=== PATIENT | female | born 1960 | race Caucasian/White ===

== ENCOUNTER 2023-12-06 13:02 | Outpatient (REF) | payer OTHER, SELFPAY ==
[2023-12-06 15:57] LABS: Bacterial Vaginosis PCR POSITIVE (Negative); Candida Group PCR DETECTED (Not Detect); Candida glab krusei PCR NOT DETECTED (Not Detect); Trichomonas vaginalis PCR NOT DETECTED (Not Detect)
[2023-12-06 16:30] LABS: CT PCR NOT DETECTED (Not Detect.); NG PCR NOT DETECTED (Not Detect.)
== END 2023-12-06 13:03 | disposition home or self-care (01) ==
LOC: HO.CHCLNP 13:02
PROVIDERS: Visit Provider Pediatrics
DX: Z01.419 Encounter for gynecological examination (general) (routine) without abnormal findings (principal)
CPT/HCPCS: 0352U; 0353U; 88142

== ENCOUNTER 2023-12-10 08:09 | Outpatient (REF) | payer OTHER, SELFPAY ==
[2023-12-10 11:48] LABS: MANUAL DIFF FLAG NO
[2023-12-10 11:53] LABS: Basophils Absolute Auto 0.1 X10*3/uL (0.0-0.2); Basophils Percent Auto 0.9 % (0-2); Eosinophils Absolute Auto 0.2 X10*3/uL (0.0-0.4); Eosinophils Percent Auto 1.8 % (0-4); Hematocrit 44.2 % (37.0-47.0); Hemoglobin 14.3 g/dl (12.0-16.0); Imm Gran Abs Auto 0.04 X10*3/uL (0.00-0.03); Imm Gran Pct Auto 0.5 % (0.0-0.4); Lymphocytes Percent Auto 34.1 % (20-40); Mean Corpuscular HGB Conc 32.4 g/dl (31.0-35.0); Mean Corpuscular Hemoglobin 29.1 pg (27.0-33.0); Mean Corpuscular Volume 89.8 fL (80.0-98.0); Mean Platelet Volume 12.2 fL (9.4-12.3); Monocytes Absolute Auto 0.6 X10*3/uL (0.1-1.2); Monocytes Percent Auto 6.2 % (2-11); Neutrophils Percent Auto 56.5 % (45-73); Platelet Count 347 X10*3/uL (160-400); Red Blood Count 4.92 X10*6/uL (4.20-5.50); Red Cell Distribution Width 14.2 % (11.0-16.0); White Blood Count 8.8 X10*3/uL (4.8-10.8)
[2023-12-10 12:02] LABS: Estimated Average Glucose 105 mg/dL; Hemoglobin A1c % 5.3 % (<6.0)
[2023-12-10 12:35] LABS: Alanine Aminotransferase 13 U/L (0-31); Albumin Level 4.4 g/dL (3.5-5.0); Alkaline Phosphatase 112 U/L (39-117); Anion Gap 14 (12-20); Aspartate Amino Transferase 21 U/L (5-31); Bilirubin Total 1.2 mg/dL (0.0-1.0); Blood Urea Nitrogen 15 mg/dL (9-16); Calcium 10.1 mg/dL (8.4-10.2); Carbon Dioxide 29 mmol/L (22-29); Chloride 101 mmol/L (96-108); Cholesterol 250 mg/dL (<200); Estimated Glomerular Filt Rate > 60; Glucose Random 91 mg/dL (60-115); HDL Cholesterol 81 mg/dL (>40); LDL Cholesterol Calculated 155 mg/dL (<100); Potassium 3.9 mmol/L (3.3-5.1); Sodium 140 mmol/L (135-145); Total Protein 8.1 g/dL (6.5-8.0); Triglycerides 73 mg/dL (<150)
[2023-12-10 12:46] LABS: Appearance Urine Clear; Color Urine Dark Yellow; Glucose Urine UA Negative (Negative); Leukocyte Esterase Urine Small (1+) (Negative); Nitrite Urine Negative (Negative); Specific Gravity - Urine 1.025 (1.005-1.025); UMIC TRIGGER UACC YES; Urine Blood Small (1+) (Negative); Urine Ketones Negative (Negative); Urine Protein Negative (Neg-Trace)
[2023-12-10 12:51] LABS: TSH reflex Free T4 1.96 uIU/mL (0.32-4.0); Vitamin D 25-OH Total 29.7 ng/mL (>30)
[2023-12-10 13:06] LABS: Bacteria Urine Trace (None Seen); UACC Culture Trigger YES; WBC Urine 0-5 /HPF (0-5)
[2023-12-10 14:02] LABS: Creatinine Urine 210.43 mg/dL; Microalbum/Creatinine Ratio Ur 9.5 ug/mg cr (<30)
== END 2023-12-10 08:10 | disposition home or self-care (01) ==
LOC: HO.CHCLDS 08:09
PROVIDERS: Visit Provider Pediatrics
DX: Z00.00 Encounter for general adult medical examination without abnormal findings (principal); E55.9 Vitamin D deficiency, unspecified; M85.80 Other specified disorders of bone density and structure, unspecified site; E78.2 Mixed hyperlipidemia; J30.2 Other seasonal allergic rhinitis; R03.0 Elevated blood-pressure reading, without diagnosis of hypertension
CPT/HCPCS: 36415; 80053; 80061; 81001; 82043; 82306; 82570; 83036; 84443; 85025; 87086

== ENCOUNTER 2025-03-12 08:24 | Outpatient (REF) | payer SELFPAY ==
--- OUTSIDE RECORDS SUMMARY | 2025-03-11 10:30 | XMS_ITS | Encounter Summary ---
Author Organization [employer] Address [address] [place] [address] 7 [place] [address] Care Team Providers Care Car Record Clerk Name Role Phone Nighat Bacon MD Primary Care Provider [phone] Reason for Referral * Imaging (Routine) - Closed Specialty Diagnoses / Procedures Referred By Althea mendez Referred To Contact Radiology Diagnoses Breast cancer screening by mammogram Procedures BI Mammogram Screening Tomosynthesis Bilateral Nighat Bacon MD [address] [place] [address] Phone: tel: fax: [address] Phone: tel: fax: Referral ID Status Reason Start Date Expiration Date Visits Re quested Visits Authorized [id number] Closed 03/11/2025 03/11/2026 1 1 * Consultation (Urgent) - Closed Specialty Diagnoses / Procedures Referred By Althea mendez Referred To Contact Ophthalmology Diagnoses Cataract of both eyes, unspecified cataract type Nighat Bacon MD [address] [place] [address] Phone: tel: fax: Referral ID Status Reason Start Date Expiration Date V isits Requested Visits Authorized [id number] Closed Specialty Services Required 03/11/2025 03/11/2026 1 1 Encounter Details Date Type Department Care Team (Late st Contact Info) Description 03/11/2025 10:30 AM EDT Office Visit [facility] MED & PEDS [address] [place] [address] Nighat Bacon MD [address] [place] [address] Cataract of both eyes, unspecified cataract type (Primary Dx); Breast cancer screening by mammogram; Vitamin D deficiency; Mixed hyperlipidemia; Dietary counseling; Exercise counseling; Preop examination Social History Tobacco Use Types Packs/Day Years Used Date Smoking Tobacco: Never Passive Smoke Exposure: Never Smokeless Tobacco: Never Alcohol Use Standard Drinks/Week Comments Never 0 (1 standard drink = 0.6 oz pur e alcohol) Depression Answer Date Recorded Patient Health Questionnaire-9 Score 0 03/11/2025 Patient Health Questionnaire-9 Score 0 03/11/2025 Last PHQ-9: Questionnaire Data Not on file 0 03/11/2025 Housing Stability Answer Date Recorded What is your housing situation today? I have jesika torrez 03/11/[address] you li ve. Do you have problems with any of the following? None of the above 03/11/2025 Food Insecurity Answer Date Recorded Within the past 12 months, y ou worried that your food would run out before you got money to buy more: Never True 03/11/2025 Within the past 12 months,th e food you bought just didn't last and you didn't have enough money to get more: Never True 10/2024 Transportation Answer Date Recorded In the past 12 months, has l ack of transportation kept you from medical appts, meetings, work or from getting things needed for daily living? No 03/11/2025 Utilities Answer Date Recorded In the past 12 months, has t he electric, gas, oil or water company threatened to shut off services in your home? No 03/11/2025 Depression Answer Date Recorded Patient Health Questionnaire-2 Score 0 03/11/2025 Internet Access Answer Date Recorded Internet Access Q1 Yes 03/11/2025 Internet Access Q2 Not on file 03/11/2025 Comments No Sex and Gender Information Value Date Recorded Sex Assigned at Female 05/07/2022 10:20 AM EDT Legal Sex Female 10:20 AM EDT Gender Identity Female 05/07/2022 10:20 AM EDT Sexual Orientation Straight 05/07/2022 10 :20 AM EDT documented as of this encounter Last Filed Vital Signs Vital Sign Reading Time Taken Comments Blood Pressure 138/88 03/11/2025 10:26 AM EDT Pulse 68 03/11/2025 10:26 AM EDT Temperature 36.3 C (97.4 F) 03/11/2025 10:26 AM EDT Respiratory Rate 16 03/11/2025 10:26 AM EDT Oxygen Saturation - - Inhaled Oxygen Concentration - - Weight 92.1 kg (203 lb) 03/11/2025 10:26 AM EDT Height 154.9 cm (5' 1 ) 03/11/2025 10:26 AM EDT Body Mass Index 38.36 03/11/2025 10:26 AM EDT documented in this encounter Functional Status * Over the past 2 weeks, how often have you been bothered by any of the following problems? Question Answer Date of Assessment Author Patient Health Questionnaire-2 Score 0 10/2024 10:36 AM Elina Lassiter MA * Little interest or pleasure in doing things Answer Date of Assessment Author Not at all 03/11/2025 10:36 AM James Lassiter MA * Feeling down, depressed, or hopeless Answer Date of Assessment Author Not at all 03/11/2025 10:36 AM James Lassiter MA * Trouble falling or staying asleep, or sleeping too much Answer Date of Assessment Author Not at all 03/11/2025 10:36 AM James Lassiter MA * Feeling tired or having little energy Answer Date of Assessment Author Not at all 03/11/2025 10:36 AM James Lassiter MA * Poor appetite or overeating Answer Date of Assessment Author Not at all 03/11/2025 10:36 AM James Lassiter MA * Feeling bad about yourself - or that you are a failure or have let yourself or your family down Answer Date of Assessment Author Not at all 03/11/2025 10:36 AM James Lassiter MA * Trouble concentrating on things, such as reading the newspaper or watching television Answer Date of Assessment Author Not at all 03/11/2025 10:36 AM James Lassiter MA * Moving or speaking so slowly that other people could have noticed? Or the opposite - being so fidgety or restless that you have been moving around a lot more than usual. Answer Date of Assessment Author Not at all 03/11/2025 10:36 AM James Lassiter MA * Thoughts that you would be better off or hurting yourself in some way Answer Date of Assessment Author Not at all 03/11/2025 10:36 AM James Lassiter MA * Patient Health Questionnaire-9 Score Answer Date of Assessment Author 0 03/11/2025 10:36 AM James Lassiter MA documented as of this encounter Progress Notes * Nighat Bacon MD - 03/11/2025 10:30 AM EDT Subjective Patient ID: Naomi Rebollar is a 64 y.o. female who presents for preop eval x cataract surgery. Naomi is a 64 y/o female patient of [facility] here for preop exam for cataract surgery. Patient is having a lot of issues with her vision lately and cannot drive past 6 PM which is affecting her her ability to do errands and work sometimes. Patient had a lot of issues with her medical insurance but apparently these have all been fixed. She has no significant past medical history except for overweight and mild hypertension. Takes hydrochlorothiazide for hypertension. No new complaints today. Another appointment scheduled with me for PE. Review of Systems Constitutional: Negative for activity change, chills, fever and unexpected weight change. Eyes: Positive for visual disturbance. Negative for pain and itching. Respiratory: Negative for cough, shortness of breath and wheezing. Cardiovascular: Negative for chest pain, palpitations and leg swelling. Gastrointestinal: Negative for abdominal pain and blood in stool. Endocrine: Negative for polydipsia and polyuria. Genitourinary: Negative for decreased urine volume, difficulty urinating, dysuria and hematuria. Musculoskeletal: Negative for arthralgias and gait problem. Skin: Negative for color change and rash. Neurological: Negative for dizziness and headaches. Hematological: Negative for adenopathy. Psychiatric/Behavioral: Negative for dysphoric mood, hallucinations, sleep disturbance and suicidalideas. The patient is not nervous/anxious. Objective BP 138/88 (BP Location: Left arm, Patient Position: Sitting, BP Cuff Size: Adult) Pulse68 Temp 97.4 ??F (36.3 ??C) (Oral) Resp 16 Ht 5' 1 (1.549 m) Wt 203 lb (92.1 kg) LMP 07/08/2017 (Approximate) BMI 38.36 kg/m?? Physical Exam Vitals reviewed. Constitutional: General: She is not in acute distress. Appearance: Normal appearance. She is not ill-appearing. HENT: Head: Normocephalic. Right Ear: Tympanic membrane and ear canal normal. Left Ear: Tympanic membrane and ear canal normal. Nose: Nose normal. Mouth/Throat: Mouth: Mucous membranes are moist. Pharynx: No oropharyngeal exudate or posterior oropharyngeal erythema. Eyes: Extraocular Movements: Extraocular movements intact. Conjunctiva/sclera: Conjunctivae normal. Pupils: Pupils are equal, round, and reactive to light. Cardiovascular: Rate and Rhythm: Normal rate and regular rhythm. Pulses: Normal pulses. Heart sounds: Normal heart sounds. Pulmonary: Effort: Pulmonary effort is normal. No respiratory distress. Breath sounds: Normal breath sounds. No wheezing. Abdominal: General: There is distension. Palpations: Abdomen is soft. Tenderness: There is no abdominal tenderness. Musculoskeletal: General: Normal range of motion. Cervical back: Normal range of motion. Skin: General: Skin is warm. Capillary Refill: Capillary refill takes less than 2 seconds. Findings: No rash. Neurological: General: No focal deficit present. Mental Status: She is alert and oriented to person, place, and time. Psychiatric: Mood and Affect: Mood normal. Behavior: Behavior normal. Thought Content: Thought content normal. Judgment: Judgment normal. Assessment/Plan Diagnoses and all orders for this visit: Cataract of both eyes, unspecified cataract type Comments: Seems she is scheduled for 03-24-25. Orders: - Referral to Ophthalmology; Future - Basic Metabolic Panel, Fasting; Future - CBC auto differential; Future - Lipid Panel, Standard; Future - Hepatic Function Panel; Future - Hemoglobin A1c; Future - Vitamin D, 25-Hydroxy, Total, Immunoassay; Future - Vitamin B12/Folate, Serum Panel; Future - TSH W/Reflex to FT4; Future Breast cancer screening by mammogram Comments: Due soon,order sent. Orders: - BI Mammogram Screening Tomosynthesis Bilateral; Future - Basic Metabolic Panel, Fasting; Future - CBC auto differential; Future - Lipid Panel, Standard; Future - Hepatic Function Panel; Future - Hemoglobin A1c; Future - Vitamin D, 25-Hydroxy, Total, Immunoassay; Future - Vitamin B12/Folate, Serum Panel; Future - TSH W/Reflex to FT4; Future Vitamin D deficiency Comments: Check levels and continue replacement. Orders: - Basic Metabolic Panel, Fasting; Future - CBC auto differential; Future - Lipid Panel, Standard; Future - Hepatic Function Panel; Future - Hemoglobin A1c; Future - Vitamin D, 25-Hydroxy, Total, Immunoassay; Future - Vitamin B12/Folate, Serum Panel; Future - TSH W/Reflex to FT4; Future Mixed hyperlipidemia Comments: Recheck lipids with fasting labs.F/U with me given. Orders: - Basic Metabolic Panel, Fasting; Future - CBC auto differential; Future - Lipid Panel, Standard; Future - Hepatic Function Panel; Future - Hemoglobin A1c; Future - Vitamin D, 25-Hydroxy, Total, Immunoassay; Future - Vitamin B12/Folate, Serum Panel; Future - TSH W/Reflex to FT4; Future Dietary counseling Exercise counseling Preop examination Comments: Naomi is overall healthy patient.She is scheduled for ctaract sx and has no contraindications. She is cleared for this with no reservations. Other orders - topiramate (Topamax) 50 MG tablet; Take 1 tablet (50 mg) by mouth Once per day. - hydroCHLOROthiazide (HYDRODiuril) 25 MG tablet; Take 1 tablet (25 mg) by mouth Once per day. documented in this encounter Plan of Treatment Upcoming Encounters Date Type Department Care Team (Late st Contact Info) Description 05/04/2025 9:15 AM EDT Office Visit [facility] MED & PEDS [address] [place] [address] Nighat Bacon MD [address] [place] [address] Scheduled Orders Name Type Priority Associated Diagnoses Orde r Schedule BI Mammogram Screening Tomosynthesis Bilateral Imaging Routine Breast cancer screening by mammogram Expected: 03/11/2025, Expires: 05/11/2026 Basic Metabolic Panel, Fasting Lab Routine Cataract of both eyes, unspecified cataract type Breast cancer screening by mammogram Vitamin D deficiency Mixed hyperlipidemia Expected: 03/11/2025 (Approximate), Expires: 03/11/2026 CBC auto differential Lab Routine Cataract of both eyes, unspecified cataract type Breast cancer screening by mammogram Vitamin D deficiency Mixed hyperlipidemia Expected: 03/11/2025 (Approximate), Expires: 03/11/2026 Lipid Panel, Standard Lab Routine Cataract of both eyes, unspecified cataract type Breast cancer screening by mammogram Vitamin D deficiency Mixed hyperlipidemia Expected: 03/11/2025 (Approximate), Expires: 03/11/2026 Hepatic Function Panel Lab Routine Cataract of both eyes, unspecified cataract type Breast cancer screening by mammogram Vitamin D deficiency Mixed hyperlipidemia Expected: 03/11/2025 (Approximate), Expires: 03/11/2026 Hemoglobin A1c Lab Routine Cataract of both eyes, unspecified cataract type Breast cancer screening by mammogram Vitamin D deficiency Mixed hyperlipidemia Expected: 03/11/2025 (Approximate), Expires: 03/11/2026 Vitamin D, 25-Hydroxy, Total, Immunoassay Lab Routine Cataract of both eyes, unspecified cataract type Breast cancer screening by mammogram Vitamin D deficiency Mixed hyperlipidemia Expected: 03/11/2025 (Approximate), Expires: 03/11/2026 Vitamin B12/Folate, Serum Panel Lab Routine Cataract of both eyes, unspecified cataract type Breast cancer screening by mammogram Vitamin D deficiency Mixed hyperlipidemia Expected: 03/11/2025, Expires: 03/11/2026 TSH W/Reflex to FT4 Lab Routine Cataract of both eyes, unspecified cataract type Breast cancer screening by mammogram Vitamin D deficiency Mixed hyperlipidemia Expected: 03/11/2025 (Approximate), Expires: 03/11/2026 Scheduled Referrals Name Type Priority Associated Diagnoses Order Schedule Referral to Ophthalmology Outpatient Referral Urgent Cataract of both eyes, unspecified cataract type Expected: 03/11/2025 (Approximate), Expires: 03/11/2026 documented as of this encounter Visit Diagnoses Diagnosis Cataract of both eyes, unspecified cataract type- Primary Breast cancer screening by mammogram Vitamin D deficiency Mixed hyperlipidemia Dietary counseling Dietary surveillance and counseling Exercise counseling Preop examination Unspecified pre-operative examination documented in this encounter Additional Health Concerns Assessment Noted Time PHQ-9 Depression Total Score: 0 09/04/20 25 10:36 AM EDT documented as of this encounter Care Teams Car Record Clerk Relationship Specialty Start Date End Date Nighat Bacon MD [address] [place] [id number] PCP - General Family Medicine 07/08/18 documented as of this encounter
--- OUTSIDE RECORDS SUMMARY | 2025-03-12 08:51 | XMS_ITS | Encounter Summary ---
Author Organization [employer] Address [address] [facility] [address] [place] [address] Care Team Providers Care Lime Hide Inspector Name Role Phone Nighat Bacon MD Primary Care Provider [phone] Reason for Visit * Reason Onset Date Comments Cataract surgery appt 03/11/2025 Encounter Details Date Type Department Care Team ([facility] st Contact Info) Description 03/11/2025 Telephone C [facility] MED [facility] PEDS [address] [place], [place] [phone] Nighat Bacon MD [address] [place] [address] Cataract surgery appt Social History Tobacco Use Types Packs/Day Years [...] your housing situation today? I have jesika sing 03/11/[address] you li [...] AM EDT documented as of this encounter Functional Status * Over the [...] Lassiter MA documented as of this encounter Miscellaneous Notes * Telephone Encounter - Elina Nunez MA - 03/11/2025 12:15 PM EDT Called Surgeon's office [facility] at [phone] and spoke to Lucita. Updated patient's new insurance with office and was told they take Dave. Lucita scheduled an appt on 03/11/25 for measurements, and scheduled an appt for cataract surgery of left eye on 03/26/25, office will call pt2 days before surgery to register patient and tell her the time of surgery. Let pt know appt details. Pt is ok with both appt. Faxed over pre-op note to office [phone]. documented in this encounter Plan of Treatment Upcoming Encounters Date Type Department Care Team (Late st Contact Info) Description 05/04/2025 9:15 AM EDT Office Visit [facility] MED & PEDS [address] [place] [address] Nighat Bacon MD [address] [place] [address] documented as of this encounter Visit Diagnoses Not on filedocumented in this encounter Additional Health Concerns Assessment Noted Time PHQ-9 Depression Total Score: 0 03/11/20 25 10:36 AM EDT documented as of this encounter Care Teams Lime Hide Inspector Relationship Specialty Start Date End Date Nighat Bacon MD [address] [place] [id number] PCP - General Family Medicine 07/08/18 documented as of this encounter
--- OUTSIDE RECORDS SUMMARY | 2025-03-12 08:51 | XMS_ITS | Encounter Summary ---
Author Organization [employer] Address [address] [facility] [address] [place] [address] Care Team Providers Care Logging Tractor Operator Name Role Phone Nighat Bacon MD Primary Care Provider [phone] Reason for Visit * Reason Onset Date Comments Insurance update 03/10/2025 Encounter Details Date Type Department Care Team ([facility] Contact Info) Description 03/10/2025 Telephone [facility] CHC MED & PEDS [address] [place], [place] [phone] Nighat Bacon MD [address] [place] [address] Insurance update Social History Tobacco Use Types Packs/Day Years [...] AM EDT documented as of this encounter Miscellaneous Notes * Telephone Encounter - Luis Gross - 03/10/2025 2:48 PM EDT event lighting specialist updated pcp/loc for tomorrows scheduled appt 03/11/25 : Your PCP change request has been submitted. Changes will normally be reflected in the member???s account within 3-5 days. documented in this encounter Plan of Treatment Upcoming Encounters Date Type Department Care Team ([facility] st Contact Info) Description 05/04/2025 9:15 AM EDT Office Visit [facility] MED & PEDS [address] [place] [address] Nighat Bacon MD [address] [place] [address] documented as of this encounter Visit Diagnoses Not on filedocumented in this encounter Additional Health Concerns Assessment Noted Time PHQ-9 Depression Total Score: 0 08/10/19 23 11:06 AM EST documented as of this encounter Care Teams Logging Tractor Operator Relationship Specialty Start Date End Date Nighat Bacon MD [address] [place] [address] PCP - General Family Medicine 07/08/18 documented as of this encounter
--- OUTSIDE RECORDS SUMMARY | 2025-03-12 08:51 | XMS_ITS | Encounter Summary ---
Author Organization [employer] Address [address] [facility] [address] [place] [address] Care Team Providers Care Gate Keeper Name Role Phone Nighat Bacon MD Primary Care Provider [phone] Encounter Details Date Type Department Care Team ([facility] Contact Info) Description 05/15/2023 Abstract [facility] MEDICINE [address] [place], [place] [phone] Karen Vickers Social History Tobacco Use Types Packs/Day Years Used Date Smoking Tobacco: Never Smokeless Tobacco: Never Alcohol Use Standard Drinks/Week Comments Never 0 (1 standard drink = 0.6 oz pur e alcohol) Depression Answer Date Recorded Patient Health Questionnaire-9 Score 0 08/10/2022 Housing Stability Answer Date Recorded What is your housing situation today? I have jesika torrez 05/15/[address] you li ve. Do you have problems with any of the following? None of the above 05/15/2023 Food Insecurity Answer Date Recorded Within the past 12 months, y ou worried that your food would run out before you got money to buy more: Never True 05/15/2023 Within the past 12 months,th e food you bought just didn't last and you didn't have enough money to get more: Never True 02/2023 Transportation Answer Date Recorded In the past 12 months, has l ack of transportation kept you from medical appts, meetings, work or from getting things needed for daily living? No 05/15/2023 Utilities Answer Date Recorded In the past 12 months, has t he electric, gas, oil or water company threatened to shut off services in your home? No 05/15/2023 Depression Answer Date Recorded Patient Health Questionnaire-2 Score 0 08/10/2022 Comments Unknown Sex and Gender Information Value Date Recorded Sex Assigned at Female 05/07/2022 10:20 AM EDT Legal Sex Female 10:20 AM EDT Gender Identity Female 05/07/2022 10:20 AM EDT Sexual Orientation Straight 05/07/2022 10 :20 AM EDT documented as of this encounter Plan of Treatment Upcoming Encounters Date Type Department Care Team (Late st Contact Info) Description 05/04/2025 9:15 AM EDT Office Visit [facility] MED & PEDS [address] [place] [address] Nighat Bacon MD [address] [place] [address] documented as of this encounter Procedures Procedure Name Priority Date/Time Associated Diagnosis Comments COLONOSCOPY Routine 08/18/2015 documented in this encounter Results * Colonoscopy (08/18/2015) Colonoscopy Normal Normal Narrative Karen Vickers - 08/18/2015 Recommended 10 year follow up us Historical Provider HEALTH MAINTENANCE Final Result documented in this encounter Visit Diagnoses Not on filedocumented in this encounter Additional Health Concerns Assessment Noted Time PHQ-9 Depression Total Score: 0 08/10/19 23 11:06 AM EST documented as of this encounter Care Teams Gate Keeper Relationship Specialty Start Date End Date Nighat Bacon MD [address] [place] [address] PCP - General Family Medicine 07/08/18 documented as of this encounter
--- OUTSIDE RECORDS SUMMARY | 2025-03-12 08:51 | XMS_ITS | Clinical Summary ---
Author Organization [employer] Address [address] [place] [address] Care Team Providers Care Messenger Copy Name Role Phone Nighat Bacon MD Primary Care Provider [phone] Allergies No known active allergies Medications calcium carbonate 1500 (600 Ca) MG tabletIndication s:Vitamin D deficiency,Famil ial hypercholesterol emia,Breast cancer screening by mammogram,PE (physical exam), annual Take 1 tablet (1,500 mg) by mouth in the morning. 90 tablet 3 08/10/19 23 Active Blood Pressure kitIndications:E levated BP without diagnosis of hypertension Take BP daily 1 kit 12/06/19 24 Active Calcium Carb-Cholecalcif nathan (Calcium 1000 + D) 1000-20 MG-MCG tablet Take 1 tablet by mouth 2 times daily. 180 tablet 3 01/15/20 24 Active ibuprofen 800 MG tabletIndication s:Vitamin D deficiency,Famil ial hypercholesterol emia,Breast cancer screening by mammogram,PE (physical exam), annual TAKE ONE TABLET THREE TIMES DAILY WITH FOOD NEEDED 90 tablet 2 10/03/19 25 Active topiramate (Topamax) 50 MG tablet Take 1 tablet (50 mg) by mouth Once per day. 30 tablet 3 03/11/20 25 Active hydroCHLOROthiaz radha (HYDRODiuril) 25 MG tablet Take 1 tablet (25 mg) by mouth Once per day. 30 tablet 11 03/11/20 25 026 Active hydroCHLOROthiaz radha (HYDRODiuril) 25 MG tablet Take 1 tablet (25 mg) by mouth Once per day. 30 tablet 11 12/06/19 24 025 Discontinued(Re order (will not trigger notification to Pharmacy)) Active Problems Problem Noted Date Diagnosed Date Primary hypertension 01/15/2024 Osteopenia 07/14/2021 Gastroesophageal reflux disease 05/10/2015 Hyperlipidemia 10/08/2012 Obesity 08/23/2011 Allergic rhinitis 03/22/2011 Vitamin D deficiency 01/17/2011 Encounters Date Type Department Care Team Description 03/11/2025 10:30 AM EDT Office Visit [facility] [address] [place] [address] Nighat Bacon MD Cataract of both eyes, unspecified cataract type (Primary Dx); Breast cancer screening by mammogram; Vitamin D deficiency; Mixed hyperlipidemia; Dietary counseling; Exercise counseling; Preop examination 03/11/2025 Telephone [facility] [address] [place] [address] Nighat Bacon MD Cataract surgery appt 03/11/2025 Travel 03/10/2025 Telephone [facility] [address] [place] [address] Nighat Bacon MD Insurance update 03/09/2025 Telephone [facility] [address] [place] [address] Nighat Bacon MD Chart Prep 02/12/2025 Travel 01/13/2025 Telephone [facility] [address] [place] [address] Nighat Bacon MD Pre-op Visit from Last 3 Months Immunizations Immunization Administration Dates Next Due Hep B, adult 06/20/2009,02/25/2009,01/25/2009 Influenza injectable quadriv alent IIV4 with preservative 04/08/2018,05/07/2016,04/12/2015 Influenza injectable quadriv alent preservative free 04/18/2023,05/10/2022,04/01/2019,2016 Influenza, IIV3, injectable 04/15/2021, 4 Influenza, Injectable, MDCK, preservative free 03/16/2024 Influenza, Split (incl. shayla fied surface antigen) 03/26/2013,05/21/2012 Moderna Covid-19 Vaccine 12+ 11/25/2020,10/29/19 21 Pfizer Covid-19 Vaccine 12+ 04/18/2023, 1 Tdap 08/17/2015 Zoster, Recombinant 04/01/2019,01/22/2019 Social History Tobacco Use Types Packs/Day Years Used Date Smoking Tobacco: Never Passive Smoke Exposure: Never Smokeless Tobacco: Never Tobacco Cessation:Counseling Given: Not Answered Alcohol Use Standard Drinks/Week Comments Never 0 [...] Orientation Straight 05/07/2022 10 :20 AM EDT Last Filed Vital Signs Vital Sign Reading Time Taken Comments Blood Pressure 138/88 03/11/2025 10:26 AM EDT Pulse 68 03/11/2025 10:26 AM EDT Temperature 36.3 C (97.4 F) 03/11/2025 10:26 AM EDT Respiratory Rate 16 03/11/2025 10:26 AM EDT Oxygen Saturation 100% 12/06/2023 10:01 AM EDT Inhaled Oxygen Concentration - - Weight 92.1 kg (203 lb) 03/11/2025 10:26 AM EDT Height 154.9 cm (5' 1 ) 03/11/2025 10:26 AM EDT Body Mass Index 38.36 03/11/2025 10:26 AM EDT Plan of Treatment Upcoming Encounters Date Type Department Care Team (Late st Contact Info) Description 05/04/2025 9:15 AM EDT Office Visit [facility] [address], [place] [phone] Nighat Bacon MD [address] [place] [address] Health Maintenance Due Date Last Done Comments CT Colonography 1960 FIT DNA/Cologuard 1960 FIT 1960 FOBT 1960 Sigmoidoscopy 1960 Pneumococcal Vaccine: 50+ Years (1 of 1 - PCV) 2012 Dental Oral Exam 06/28/2024 12/27/2023, 05/2022, 08/11/2018, Additional history exists Dental Prophylaxis 06/28/2024 12/27/2023, 0 09/15/2021, 04/08/2019, Additional history exists Dental X-Ray: Bitewings 12/27/2024 12/27/19 24, 09/15/2021, 08/11/2018, Additional history exists COVID-19 Vaccine ( season) 2025 04/18/2023, 07/07/2021, 11/25/2020, Additional history exists Influenza Vaccine (#1) 2025 4, 04/18/2023, 05/10/2022, Additional history exists DTaP/Tdap/Td Vaccines (2 - Td or Tdap) 08/17/2025 08/17/2015 Colonoscopy 08/18/2025 08/18/2015 Colorectal Cancer Screening 08/18/2025 Mammogram 12/18/2025 12/19/2023 Alcohol/Substance Use Screening 03/11/2026 03/11/2025 Depression Screening 03/11/2026 03/11/2025, 03/11/20 Disability Screening 03/11/2026 03/11/2025 SDOH Screening 03/11/2026 03/11/2025 Tobacco Screening 03/11/2026 03/11/2025 Cervical Cancer Screening 12/05/2026 HPV/Cotest 12/05/2026 11/20/2018 Pap Smear 12/05/2026 12/06/2023 Dental X-Ray: Full Mouth 12/27/2026 12/27/2023, 12/06 Lipid Panel 12/09/2028 12/10/2023, 08/08, 08/18/2021, Additional history exists RSV Patients and Patients Aged 60 years or older (1 - 1-dose 75+ series) 2037 Hepatitis B Vaccines Completed 06/20/2009, 02/25/2009, 01/25/2009 Zoster Vaccines Completed 04/01/2019, 01/22/2019 HIV Screening Completed 08/17/2022 Hepatitis C Screening Completed 08/17/2022 HIB Vaccines Aged Out No longer eligi ble based on patient's age to complete this topic HPV Vaccines Aged Out No longer eligi ble based on patient's age to complete this topic Hepatitis A Vaccines Aged Out No long er eligible based on patient's age to complete this topic IPV Vaccines Aged Out No longer eligi ble based on patient's age to complete this topic Meningococcal B Vaccine Aged Out No l onger eligible based on patient's age to complete this topic Meningococcal Vaccine Aged Out No jose lamar eligible based on patient's age to complete this topic RSV under 20 months Aged Out No longe r eligible based on patient's age to complete this topic Rotavirus Vaccines Aged Out No longer eligible based on patient's age to complete this topic Procedures Procedure Name Priority Date/Time Associated Diagnosis Comments PROPHYLAXIS - ADULT Routine 12/27/2023 3 :00 PM EDT INTRAORAL - COMPLETE SERIES OF RADIOGRAPHIC IMAGES Routine 12/27/2023 3:00 PM EDT PERIODIC ORAL EVALUATION - ESTABLISHED PATIENT Routine 12/27/2023 3:00 PM EDT BI MAMMOGRAM SCREENING TOMOSYNTHESIS BILATERAL Routine 12/19/2023 Breast cancer screening by mammogram LIPID PANEL, STANDARD Routine 12/10/2023 8:11 AM EDT Routine general medical examination at a [facility] care facility Vitamin D deficiency Osteopenia, unspecified location Mixed hyperlipidemia Seasonal allergic rhinitis, unspecified trigger PAP SMEAR Routine 12/06/2023 10:30 AM EDT Encounter for gynecological examination with Papanicolaou smear of cervix HEPATITIS PANEL, GENERAL Routine 08/17/2022 8:56 AM EST Vitamin D deficiency Familial hypercholesterolemia Breast cancer screening by mammogram PE (physical exam), annual HIV 1 RNA, QN PCR W/RFL BELEN (RTI,PI,INTEGRASE) Routine 08/17/2022 8:56 AM EST Vitamin D deficiency Familial hypercholesterolemia Breast cancer screening by mammogram PE (physical exam), annual ZZZ HISTORICAL HPV MRNA E6/E7 Routine 11/20/2018 9:20 AM EDT HM COLONOSCOPY Routine 08/18/2015 from Last 3 Months or Most Recently Relevant to Health Maintenance Results * BI Mammogram Screening Tomosynthesis Bilateral (12/19/2023) Anatomical Region Laterality Modality Breast Bilateral Mammography Nighat Bacon MD [facility] BI PROCEDURES Final Resul t * (ABNORMAL) Lipid Panel, Standard (12/10/2023 8:11 AM EDT) Triglycerides 73 <150 mg/dL [facility] Comment:Desirable Triglyceri de: less than 150 mg/dLBorderline High Triglyceride 150-199 mg/dLHigh Triglyceride: 200-499 mg/dLVery High Triglyceride: greater than or equal to 5OO mg/dL Cholesterol 250(H) <200 mg/dL [facility] Comment:Desirable Cholestero l: less than 200 mg/dLBorderline High Cholesterol: 200-239 mg/dLHigh Cholesterol: greater than 239 mg/dL LDL Cholesterol Calculated 155(H) <100 mg/dL [facility] Comment:Desirable LDL: less than 100 mg/dLNear Optimal/Above Optimal LDL: 110- 129 mg/dLBorderline High LDL: 130-159 mg/dLHigh LDL: 160-189 mg/dLVery High LDL: greater than or equal to 190 mg/dL HDL Cholesterol 81 >40 mg/dL [facility] Comment:Desirable HDL: great er than 40 mg/dL Note: This HDL assay may give artificially low results in patients with liver disease. Blood Venous blood specimen / Unknown 12/10/2023 8:11 AM EDT 12/10/2023 11:43 AM EDT us Nighat Bacon MD LAB BLOOD ORDERABLES Final Re sult [facility] [address] [place] [phone] * Pap Smear (12/06/2023 10:30 AM EDT) Swab Cervical swab / Unknown 12/06/2023 10:30 AM EDT 12/09/2023 5:00 AM EDT Narrative [facility] - 2023 9:19 PM EDT ----- ------- Name: Naomi Herrera Age/Sex: 62/F : 1960 Unit#: [id number] Attend Dr: Nighat Bacon MD Re12/06/23 Status: DEP [facility] Disch: ----- ------- SPEC : [id number] RECD: 12/09/23 STATUS: GREGORY HAMMONDS NUM: [id number] KRISTIN: 12/06/23 [facility] DR: Nighat Bacon MD ENTERED: 12/09/23 SP TYPE: Pap Smr OTHR DR: ORDERED: Pap Smear, PAP path review Interpretation Satisfactory for evaluation. Negative for intraepithelial lesion or malignancy. Cellular changes associated with repair. Coccobacilli consistent with shift in vaginal luis carlos. Clinical Information LMP: 07/08/2017 Previous PAP test: 11/20/2018, Unknown findings Material Received ThinPrep-Cervical ----- ------- Signed (signature on file) Patricia Diana MD 12/25/23 2119 ----- ------- END OF REPORT us Nighat Bacon MD LAB CYTOLOGY ORDERABLES Final Result [facility] [address] [place] [phone] * HIV-1 RNA, Quantitative, Real-Time PCR with Reflex to Genotype (RTI, PI, Integrase) (08/17/2022 8:56 AM EST) HIV 1 RNA, QN PCR NOT DETECTED copies/mL [facility], HIV 1 RNA, QN PCR NOT DETECTED Log copies/mL [facility], Comment: REFERENCE RANGE: NOT DETECTED copies/mL NOT DETECTED Log copies/mL This test was performed using Real-Time Polymerase Chain Reaction. Reportable range is 20 to 10,000,000 copies/mL (1.30-7.00 Log copies/mL). 08/17/2022 8:56 AM EST 08/17/2022 8:57 AM EST us Nighat Bacon MD LAB BLOOD ORDERABLES Final Re sult [facility] [address], [place] [address] [facility], [address] [place] [address] * (ABNORMAL) Hepatitis Panel, General (08/17/2022 8:56 AM EST) Hepatitis A Antibody Total NON-REACT NOVA NON-REACT [employer]OV[employer] [facility] Comment: For additional information, please refer to http://education.[employer]/faq/STZ738 (This link is being provided for informational/ educational purposes only.) Hepatitis B Surface Antibody QL REACTIVE( A) NON-REACT NOVA [employer] [place] AF83 Hepatitis B Surface Ag NON-REACT NOVA NON-REACT NOVA [employer] [facility] Hepatitis B Core Antibody Total NON-REACT NOVA NON-REACT NOVA [employer] [facility] Hepatitis C Antibody NON-REACT NOVA NON-REACT NOVA [employer] [place] AF83 Index <0.02 <1.00 [employer] [place] [employer] Comment: HCV antibody was non-reactive. There is no laboratory evidence of HCV infection. In most cases, no further action is required. However, if recent HCV exposure is suspected, a test for HCV RNA (test code 73876) is suggested. For additional information please refer to http://Konnektid.[employer]/faq/EBZ83m6 (This link is being provided for informational/ educational purposes only.) 08/17/2022 8:56 AM EST 08/17/2022 8:57 AM EST us Nighat Bacon MD LAB BLOOD ORDERABLES Final Re sult [facility] [address] [facility], [facility], [place] [address] [employer] [facility] [address] [facility], ([address]) [place] [address] * HPV mRNA E6/E7 (11/20/2018 9:20 AM EDT) HPV mRNA E6/E7 Not Detected NOT DETECTED [facility] Comment: This test was performed using the APTIMA(R) HPV Assay ([employer] This assay detects E6/E7 viral messenger RNA (mRNA) from 14 high-risk HPV types (16,18,31,33,35,39,45,51, 52,56,58,59,66,68). For additional information please refer to: http://Konnektid.[employer]/faq/NIA872s3 (This link is being provided for informational/ educational purposes only.) The analytical performance characteristics of this assay have been determined by [employer] [place], [place]. The modifications have not been cleared or approved by the FDA. This assay has been validated pursuant to the CLIA regulations and is used for clinical purposes. Test Performed by [facility], [employer], [address] [place] [address] Irvin Mena M.D., Ph.D., Director of Laboratories , CLIA [id number] Please note: Effective 03/19/2016, HPV testing will be performed using [employer]'s APTIMA test which targets mRNA. Detecting mRNA instead of DNA, as in older methods, offers significant improvements in specificity. 11/20/2018 9:20 AM EDT Nighat Bacon MD HISTORICAL/NON ORDERABLE LABS Final Result [facility] [address] * Colonoscopy (08/18/2015) Colonoscopy Normal Normal Narrative Karen Vickers - 08/18/2015 Recommended 10 year follow up Historical Provider HEALTH MAINTENANCE Final Result from Last 3 Months or Most Recently Relevant to Health Maintenance Insurance [facility] - HSN PARTIAL (MEDICAID) Care Teams Messenger Copy Relationship Specialty Start Date End Date Nighat Bacon MD [address] [place] [phone] PCP - General Family Medicine 07/08/18
--- OUTSIDE RECORDS SUMMARY | 2025-03-12 08:51 | XMS_ITS | Encounter Summary ---
Author Organization [employer] Address [address] [facility] [address] [place] [address] Care Team Providers Care Railroad Detective Name Role Phone Nighat Bacon MD Primary Care Provider [phone] Encounter Details Date Type Department Care Team (Latest Contact Info) Description 08/11/2018 Abstract [facility] CON[facility] Dental, Provider, DDS Social History Tobacco Use Types Packs/Day Years Used Date Smoking Tobacco: Never Assessed Comments Unknown Sex and Gender Information Value [...] Description 05/04/2025 9:15 AM EDT Office Visit [facility] [address] [place] [address] Nighat Bacon MD [address] [place] [address] documented as of this encounter Visit Diagnoses Not on filedocumented in this encounter Care Teams Railroad Detective Relationship Specialty Start Date End Date Nighat Bacon MD [address] [place] [address] PCP - General Family Medicine 07/08/18 documented as of this encounter
--- OUTSIDE RECORDS SUMMARY | 2025-03-12 08:51 | XMS_ITS | Encounter Summary ---
Author Organization [employer] Address [address] [facility] [address] [place] [address] Care Team Providers Care [employer] Caretaker Name Role Phone Nighat Bacon MD Primary Care Provider [phone] Encounter Details Date Type Department Care Team (Latest Contact Info) Description 03/11/2025 Travel Social History Tobacco Use Types Packs/Day Years [...] Author Not at all 03/11/2025 10:36 AM EDT James Nunez MA * Patient Health Questionnaire-9 Score Answer Date of Assessment Author 0 03/11/2025 10:36 AM EDT James Nunez MA documented as of this encounter Plan of Treatment Upcoming Encounters Date Type Department Care Team (Late st Contact Info) Description 05/04/2025 9:15 AM EDT Office Visit [facility] [address] [place] [address] Nighat Bacon MD [address] [place] [address] documented as of this encounter Visit Diagnoses Not on filedocumented in this encounter Additional Health Concerns Assessment Noted Time PHQ-9 Depression Total Score: 0 03/11/20 25 10:36 AM EDT documented as of this encounter Care Teams [employer] Caretaker Relationship Specialty Start Date End Date Nighat Bacon MD [address] [place] [address] PCP - General Family Medicine 07/08/18 documented as of this encounter
--- OUTSIDE RECORDS SUMMARY | 2025-03-12 08:51 | XMS_ITS | Clinical Summary ---
Author Organization [facility]elyne [facility] it[facility] Address [address] [place] [address] Care Team Providers Care Forepart Rasper Name Role Phone Unavailable Primary Care Provider Unavailabl e Social History Tobacco Use Types Packs/Day Years Used Date Smoking Tobacco: Never Assessed Comments Unknown Sex and Gender Information Value Date Recorded Sex Assigned at Not on file Legal Sex Female 5:20 AM EST Gender Identity Not on file Sexual Orientation Not on file Plan of Treatment Health Maintenance Due Date Last Done Comments DTaP,Tdap,and Td Vaccines (1 - Tdap) 1981 Cervical Cancer Screening: P ap Smear 12/26/1983 Pneumococcal Vaccine: 50+ Years (1 of 1 - PCV) 2012 Zoster Vaccines (1 of 2) 2012 Colorectal Cancer Screening: Colonoscopy 06/10/2022 HIV Screening 06/10/2022 Hepatitis C Screening 06/10/2022 Social Influencers of Health Screening 06/10/2022 Depression Screening 07/08/2024 COVID-19 Vaccine (1 - 2023-2 5 season) 2025 Influenza Vaccine (#1) 2025 Breast Cancer Screening 12/18/2025 12/19/19, 07/14/2021, 12/14/2018 RSV Immunization Adult Patients (1 - 1-dose 75+ series) 2037 HIB Vaccines Aged Out No longer eligi ble based on patient's age to complete this topic HPV Vaccines Aged Out No longer eligi ble based on patient's age to complete this topic Hepatitis A Vaccines Aged Out No long er eligible based on patient's age to complete this topic Hepatitis B Vaccines Aged Out No long er eligible based on patient's age to complete this topic IPV Vaccines Aged Out No longer eligi ble based on patient's age to complete this topic MMR Vaccines Aged Out No longer eligi ble based on patient's age to complete this topic Meningococcal ACWY Vaccine Aged Out N o longer eligible based on patient's age to complete this topic Meningococcal B Vaccine Aged Out No l onger eligible based on patient's age to complete this topic RSV Immunization Patients Under 20 months Aged Out No longer eligible b ased on patient's age to complete this topic Varicella Vaccines Aged Out No longer eligible based on patient's age to complete this topic Procedures Procedure Name Priority Date/Time Associated Diagnosis Comments [facility] SCREENING DIGITAL Routine 12/19/2023 3:59 PM EDT Encounter for screening mammogram for malignant neoplasm of breast from Last 3 Months or Most Recently Relevant to Health Maintenance Results * [facility] SCREENING DIGITAL (12/19/2023 3:59 PM EDT) Anatomical Region Laterality Modality Mammography 12/19/2023 12:4 6 PM EDT Narrative 12/19/2023 3:59 PM EDT [facility] Diagnostic Imaging Department [address] [place] [address] Patient: NAOMI ADAN D.O.B./Age/Sex: 1960 - 62 - F Unit#: [id number] Location/Status: [facility] CLI Mnemonic/Ordering Site: [facility] Ordering Physician: MADELAINE BACON [facility] Screening Digital - 12/19/23 - 4 Report Status:Signed EXAM: [facility] Screening Digital EXAM DATE AND TIME: 12/19/2023 1:24 PM HISTORY: Screening. Left breast biopsy in 1998, pathology benign. COMPARISON: 07/14/21, 12/13/18 TECHNIQUE: Bilateral digital breast tomosynthesis was performed in the CC and MLO projections. Computer aided detection with [employer] 3D 3.1 was employed. TISSUE DENSITY: b. There are scattered areas of fibroglandular density. FINDINGS: No suspicious masses, grouped microcalcifications, or areas of architectural distortion are seen. Vascular calcification is present. The skin is unremarkable. IMPRESSION: Stable mammographic appearance of the breasts. No evidence of malignancy is seen. A negative mammogram in the presence of a clinically suspicious palpable abnormality does not preclude the possibility of malignancy or alter the indications for biopsy. BI-RADS: Category 2: Benign RECOMMENDATION(S): 1: Routine screening mammogram BILATERAL in 1 year. Dictating Physician: JEANNETTE JO MD Electronically Signed by: JEANNETTE JO MD Dic Date/Time: 12/19/231557 Sign date/Time: 12/19/231558 Procedure Note Jeannette Jo MD - 04/22/2024 [facility] Diagnostic Imaging Department [address] [place] [address] Patient: NAOMI ADAN/Age/Sex: 1960 - 62 - F Unit#: [id number] Location/Status: [facility]/REG CLI Mnemonic/Ordering Site: [facility] Ordering Physician: MADELAINE BACON [facility] Screening Digital - 12/19/23 - 1324 Report Status:Signed EXAM: [facility] Screening Digital EXAM DATE AND TIME: 12/19/2023 1:24 PM HISTORY: Screening. Left breast biopsy in 1998, pathology benign. COMPARISON: 07/14/21, 12/13/18 TECHNIQUE: Bilateral digital breast tomosynthesis was performed in the CCand MLO projections. Computer aided detection with [employer] 3D 3.1was employed. TISSUE DENSITY: b. There are scattered areas of fibroglandular density. FINDINGS: No suspicious masses, grouped microcalcifications, or areas ofarchitectural distortion are seen. Vascular calcification is present. The skin is unremarkable. IMPRESSION: Stable mammographic appearance of the breasts. No evidence of malignancyis seen. A negative mammogram in the presence of a clinically suspicious palpable abnormality does not preclude the possibility of malignancy or alter the indications for biopsy. BI-RADS: Category 2: Benign RECOMMENDATION(S): 1: Routine screening mammogram BILATERAL in 1 year. Dictating Physician: JEANNETTE JO MD Electronically Signed by: JEANNETTE JO MD Dic Date/Time: 12/19/23 1558 Sign date/Time: 12/19/23 1559 us Madelaine Bacon MD IMG BI PROCEDURES Final Resul t from Last 3 Months or Most Recently Relevant to Health Maintenance
--- OUTSIDE RECORDS SUMMARY | 2025-03-12 08:51 | XMS_ITS | Encounter Summary ---
Author Organization [employer] Address [address] [facility] [address] [place] [address] Care Team Providers Care Tomographic Tech Name Role Phone Nighat Bacon MD Primary Care Provider [phone] Encounter Details Date Type Department Care Team (Latest Contact Info) Description 04/08/2019 Abstract [facility] CONVERSIONS Dental, Provider, DDS Social History [...] Description 05/04/2025 9:15 AM EDT Office Visit [facility] [address] [place] [address] Nighat Bacon MD [address] [place] [address] documented as of this encounter Visit Diagnoses Not on filedocumented in this encounter Care Teams Tomographic Tech Relationship Specialty Start Date End Date Nighat Bacon MD [address] [place] [address] PCP - General Family Medicine 07/08/18 documented as of this encounter
--- OUTSIDE RECORDS SUMMARY | 2025-03-12 08:51 | XMS_ITS | Encounter Summary ---
Author Organization [employer] Address [address] [place] [address] Care Team Providers Care Waitstaff Name Role Phone Nighat Bacon MD Primary Care Provider [phone] Encounter Details Date Type Department Care Team ([facility] Contact Info) Description 12/10/2023 Orders Only [facility] [address] [place], [place] [phone] Nicole Johnston MD [address] [place], [place] [phone] Social History Tobacco Use Types Packs/Day Years Used Date Smoking Tobacco: Never Passive Smoke Exposure: Never Smokeless Tobacco: Never Alcohol Use Standard Drinks/Week Comments Never 0 (1 standard drink = 0.6 oz pur e alcohol) Depression Answer Date Recorded Patient Health Questionnaire-9 Score 0 08/10/2022 Housing Stability Answer Date Recorded What is your housing situation today? I have jesikamaira torrez 11/27/[address] you li ve. Do you have problems with any of the following? None of the above 11/27/2023 Food Insecurity Answer Date Recorded Within the past 12 months, y ou worried that your food would run out before you got money to buy more: Never True 11/27/2023 Within the past 12 months,th e food you bought just didn't last and you didn't have enough money to get more: Never True Transportation Answer Date Recorded In the past 12 months, has l ack of transportation kept you from medical appts, meetings, work or from getting things needed for daily living? No 11/27/2023 Utilities Answer Date Recorded In the past 12 months, has t he [employer], [employer], oil or water [email or web address] threatened to shut off services in your home? No 11/27/2023 Depression Answer Date Recorded Patient Health Questionnaire-2 Score 0 08/10/2022 Comments No Sex and Gender Information Value [...] Description 05/04/2025 9:15 AM EDT Office Visit [facility] [address] [place] [address] Nighat Bacon MD [address] [place] [address] documented as of this encounter Procedures Procedure Name Priority Date/Time Associated Diagnosis Comments CULTURE, URINE, ROUTINE Routine 12/10/2023 12:00 AM EDT documented in this encounter Results * Culture, Urine, Routine (12/10/2023 12:00 AM EDT) Urine Urine specimen obtained by clean catch procedure / Unknown 12/10/2023 12/10/2023 Comment:[facility] Narrative [facility] - 12/11/2023 12:26 PM EDT Urine Culture No growth. Specimen Source: Urine clean catch Nighat Bacon MD LAB MICROBIOLOGY - GENERAL OR DERABLES Final Result [facility] [address] [place] [address] [phone] documented in this encounter Visit Diagnoses Not on filedocumented in this encounter Additional Health Concerns Assessment Noted Time PHQ-9 Depression Total Score: 0 08/10/19 23 11:06 AM EST documented as of this encounter Care Teams Waitstaff Relationship Specialty Start Date End Date Nighat Bacon MD [address] [place] [address] PCP - General Family Medicine 07/08/18 documented as of this encounter
--- OUTSIDE RECORDS SUMMARY | 2025-03-12 08:51 | XMS_ITS | Encounter Summary ---
Author Organization [employer] Address [address] [place] [address] [address] [place] [address] Care Team Providers Care Hand Glove Cleaner Name Role Phone Nighat Bacon MD Primary Care Provider [phone] Encounter Details Date Type Department Care Team (Latest Contact Info) Description 09/15/2021 Abstract [facility] CONVERSIONS Dental, Provider, DDS Social History Tobacco [...] Description 05/04/2025 9:15 AM EDT Office Visit [facility] [address] [place] [address] Nighat Bacon MD [address] [place] [address] documented as of this encounter Visit Diagnoses Not on filedocumented in this encounter Care Teams Hand Glove Cleaner Relationship Specialty Start Date End Date Nighat Bacon MD [address] [place] [address] PCP - General Family Medicine 07/08/18 documented as of this encounter
--- OUTSIDE RECORDS SUMMARY | 2025-03-12 08:51 | XMS_ITS | Encounter Summary ---
Author Organization [employer] Address [address] [place] [address] Care Team Providers Care Dental Technician Name Role Phone Nighat Bacon MD Primary Care Provider [phone] Reason for Visit * Reason Onset Date Comments Chart Prep 03/09/2025 Encounter Details Date Type Department Care Team ([facility] Contact Info) Description 03/09/2025 Telephone [facility] [address] [place], [place] [phone] Nighat Bacon MD [address] [place] [address] Chart Prep Social History Tobacco Use Types Packs/Day Years Used Date Smoking Tobacco: Never Passive Smoke Exposure: Never Smokeless Tobacco: Never Alcohol Use Standard Drinks/Week Comments Never 0 (1 standard drink = 0.6 oz pur e alcohol) Depression Answer Date Recorded Patient Health Questionnaire-9 Score 0 08/10/2022 Housing Stability Answer Date Recorded What is your housing situation today? I have jesika torrez 11/27/[address] you [...] encounter Miscellaneous Notes * Telephone Encounter - Vee Maguire [place] - 03/09/2025 11:55 AM EDT Chart Prep Labs: done Images: done Referrals: complete Vaccines due: PCV20 Screenings: not applicable Overdue care gaps: SBIRT, SDOH, PHQ-9, Disability screen, and Tobacco documented in this encounter Plan of Treatment Upcoming Encounters Date Type Department Care Team (Late st Contact Info) Description 05/04/2025 9:15 AM EDT Office Visit [facility] [address] [place] [address] Nighat Bacon MD [address] [place] [address] documented as of this encounter Visit Diagnoses Not on filedocumented in this encounter Additional Health Concerns Assessment Noted Time PHQ-9 Depression Total Score: 0 08/10/19 23 11:06 AM EST documented as of this encounter Care Teams Dental Technician Relationship Specialty Start Date End Date Nighat Bacon MD [address] [place] [address] PCP - General Family Medicine 07/08/18 documented as of this encounter
[2025-03-12 11:51] LABS: MANUAL DIFF FLAG NO
[2025-03-12 11:57] LABS: Hematocrit 39.6 % (37.0-47.0); Hemoglobin 12.9 g/dl (12.0-16.0); Imm Gran Abs Auto 0.06 X10*3/uL (0.00-0.03); Imm Gran Pct Auto 0.6 % (0.0-0.4); Lymphocytes Absolute Auto 2.8 X10*3/uL (1.2-4.9); Mean Corpuscular HGB Conc 32.6 g/dl (31.0-35.0); Mean Corpuscular Hemoglobin 28.9 pg (27.0-33.0); Mean Corpuscular Volume 88.8 fL (80.0-98.0); NRBC Abs Auto 0.000 X10*3/uL (0.0-0.012); NRBC Pct Auto 0.0 /100WBC (0.0-0.2); Platelet Count 310 X10*3/uL (160-400); Red Blood Count 4.46 X10*6/uL (4.20-5.50); White Blood Count 9.5 X10*3/uL (4.8-10.8)
[2025-03-12 12:17] LABS: Hemoglobin A1C 126.0918 umol/L; Total Hemoglobin (HGBA1C) 3420.6258 umol/L
[2025-03-12 12:19] LABS: Alanine Aminotransferase 11 U/L (0-31); Albumin Level 4.2 g/dL (3.5-5.0); Alkaline Phosphatase 93 U/L (39-117); Anion Gap 10 (12-20); Aspartate Amino Transferase 23 U/L (5-31); Blood Urea Nitrogen 14 mg/dL (9-16); Calcium 8.9 mg/dL (8.4-10.2); Carbon Dioxide 28 mmol/L (22-29); Chloride 106 mmol/L (96-108); Cholesterol 254 mg/dL (<200); Estimated Glomerular Filt Rate > 60; HDL Cholesterol 67 mg/dL (>40); Potassium 4.2 mmol/L (3.3-5.1); Sodium 140 mmol/L (135-145); Total Protein 7.4 g/dL (6.5-8.0); Triglycerides 81 mg/dL (<150)
[2025-03-12 12:42] LABS: Folate 9.8 ng/mL (> or = 4.0); Vitamin B12 265 pg/mL (200-900)
== END 2025-03-12 08:25 | disposition home or self-care (01) ==
LOC: HO.CHCLDS 08:24
PROVIDERS: Visit Provider Pediatrics
DX: Z13.1 Encounter for screening for diabetes mellitus (principal); H26.9 Unspecified cataract; E78.2 Mixed hyperlipidemia; E55.9 Vitamin D deficiency, unspecified
CPT/HCPCS: 36415; 80048; 80061; 80076; 82306; 82607; 82746; 83036; 84443; 85025

== ENCOUNTER → 2025-06-15 07:46 | Outpatient (AMB) | payer OTHER, SELFPAY ==
[2025-06-15 08:02] VITALS: BP 132/80; PULSE 71; O2SAT 98; BMI 38.3
--- NOTE | 2025-06-15 08:02 | A.OFFVIS_ITS ---
Vital Signs 06/15/25 08:02 Height 5 ft 2 in Weight 209 lb 7.026 oz BMI 38.3 BP 132/80 Blood Pressure Location Rt brachial Position Sitting Pulse 71 Pulse Source Pulse Oximeter Pulse Oximetry (%) 98 Oxygen Delivery Method Room Air Intake Visit Reasons: Obesity Intake Note: Patient presents to establish care, primarily for management of chronic weight- related concerns. Per referral documentation, the patient previously trialed Topiramate for weight loss, which was discontinued due to an adverse reaction. No other pharmacologic weight-loss therapies are currently being used. 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 Onset and duration of weight gain: since menopause at age 57. Weight trajectory: She reports that her weight is variable, but reports gaining 20-25 lbs since age 57. Previous interventions: Diet: has not followed any specific diet, does not cook in oven, she uses the [employer]. Has not seen a change manager before. exercise: has going to the gym for 2 years, but has lately experienced problems with schedule that prevent her from exercising medications commercial programs: no Dietary habits: breakfast: bread, beagle, juice, coffee dinner: Chicken, vegetables, rarely eats rice. Snacks: no snacks Sleep: insomnia, difficulty to fall and stay asleep. Snores. Medications: Patient tried Topiramate for 1 week, as she experienced gastric dis comfort. Smoking: no ETOH: occasional Associated symptoms: regular energy no mood changes bilateral knee pain no SOB no heartburn mild hirsutism Contributing factors: reports that work can be a significant stressor. 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 Motivation and readiness: She reports having a goal of losing 60 lbs total, she seems very motivated. Physical exam: General: Well appearing. NAD. Not Cushingoid or Acromegalic Neck/Thyroid: Thyroid not palpable, no nodules. Eyes: No conjunctival injection, not lid lag or proptosis CV: RRR, no murmur. No edema. Resp:Lungs clear to auscultation bilaterally Abdomen: Soft, nontender. nondistended Extremities/Neuro: No weakness or tremor of outstretched hands Laboratory Tests 12/10/23 03/12/25 08:11 08:26 Creatinine 0.79 0.66 Estimated GFR > 60 > 60 Hemoglobin A1c % 5.3 5.5 Total Bilirubin 1.2 H 0.7 AST 21 23 Direct Bilirubin 0.2 ALT 13 11 Alkaline Phosphatase 112 93 Triglycerides 73 81 Cholesterol 250 H 254 H LDL Cholesterol, Calc 155 H 171 H HDL Cholesterol 81 67 25-OH Vitamin D Total 29.7 L 35.5 TSH 1.96 2.60 PFSH Medical History (Updated 06/15/25 @ 08:53 by Low Foote MD) Hyperlipidemia Essential (primary) hypertension Severe obesity (BMI >= 40) Surgical History (Updated 06/15/25 @ 08:09 by EMANUEL Mata) Hx of eye surgery Hx of colonoscopy Family History Father No problems noted. Mother No problems noted. Social History Alcohol intake: current Alcohol intake frequency: does not drink Patient Tobacco Use Status: Never used Tobacco Physical Exam Vital Signs: Last Vital Signs Pulse 71 06/15/25 08:02 BP 132/80 06/15/25 08:02 Pulse Ox 98 06/15/25 08:02 Oxygen Delivery Method Room Air 06/15/25 08:02 BMI result Body Mass Index 38.3 Assessment & Plan Assessment & Plan (1) Obesity (BMI 30-39.9): Code(s): E66.9 - Obesity, unspecified Category: Medical Plan: Obesity that developed after menopause at age 57. She does not follow any specific diet, but she reports not consuming high carb meals. She used to exercise before, but has not exercised much in the last 2 years due to schedule constraints. She has not done any commercial diet. We discussed that obesity significantly increases the risk of serious health problems, including type 2 diabetes, high blood pressure, heart disease, stroke, certain cancers, and joint disorders. It can also lead to early mortality and reduced quality of life. Recognizing obesity as a medical condition is essential for effective prevention and management. We discussed the importance of caloric restriction to achieve and maintain weight loss. We discussed that the most common side effects of GLP-1 agonists are gastrointestinal, including nausea, vomiting, diarrhea, and constipation, which are usually transient and dose-dependent. Hypoglycemia is rare unless combined with insulin or sulfonylureas. Less frequently, patients may experience injection site reactions, mild increases in heart rate, and, rarely, pancreatitis, gallbladder disease, or worsening of diabetic retinopathy. There is also a theoretical risk of thyroid C-cell tumors, so these agents are contraindicated in patients with a history of medullary thyroid carcinoma or MEN2. Most side effects can be managed with gradual dose titration and patient education, and overall, GLP-1 agonists have a favorable safety profile. Plan Referral to dietitian offered and declined Advised to regulate her caloric intake, use of apps to monitor Advice to make exercise 150 min/wk Prescribed Zepboud 2.5mg weekly Follow up in 4 months (2) MARSHALL (obstructive sleep apnea): Code(s): G47.33 - Obstructive sleep apnea (adult) (pediatric) Category: Medical Plan: Patient with history of Obesity, reporting snoring at night, at morning fatigue, sleepiness. Referred to sleep medicine for MARSHALL diagnosis (3) Hyperlipidemia: Code(s): E78.5 - Hyperlipidemia, unspecified Category: Medical Plan: Mixed hyperlipidemia, not clearly of genetic origin. No early ASCVD in the family (men aged <55 years women aged <65 years). Plan advised to increased physical activity as above nutritional counseling as above start Atorvastatin 40 mg daily We discussed the main side effects of atorvastatin Repeat Lipid panel in 4 months (4) Fatty liver: Code(s): K76.0 - Fatty (change of) liver, not elsewhere classified Category: Medical Plan: Given history of obesity, we calculated Fib-4 score resulting 1.7, based on guidelines, for patients < 65; 1.3 ? 2.67 indicates Indeterminate risk, requiring transient elastography or additional work-up. We will order Liver elastography Plan 70 minutes spent reviewing previous records, labs, imaging, education and documenting in the chart Orders: Orders Lipid Panel 4 Months E78.5 - Hyperlipidemia, unspecified US abdomen comp w elastography Today E66.9 - Obesity, unspecified Referrals Sleep Medicine Referral E66.9 - Obesity, unspecified Medications: New atorvastatin (Lipitor) 40 mg PO DAILY 30 tabs 3RF E78.5 - Hyperlipidemia, unspecified tirzepatide (weight loss) (Zepbound) for 4 weeks 2.5 mg (0.5 mL) subcut QWEEK 2 mL 3RF E66.9 - Obesity, unspecified Coding Level of Care Code New Pt Level 5 (12126) Complex visit Add On G2211 Diagnoses Obesity (BMI 30-39.9) E66.9 MARSHALL (obstructive sleep apnea) G47.33 Hyperlipidemia E78.5 Fatty liver K76.0
== END ==
LOC: HO.ENCR 07:46
PROVIDERS: PCP Pediatrics; Visit Provider Student in an Organized Health Care Education/Training Program
DX: E66.812 Obesity, class 2 (principal); Z68.38 Body mass index [BMI] 38.0-38.9, adult; G47.33 Obstructive sleep apnea (adult) (pediatric); E78.5 Hyperlipidemia, unspecified; K76.0 Fatty (change of) liver, not elsewhere classified
CPT/HCPCS: 99205